=== PATIENT | male | born 1975 | race Caucasian/White ===

== ENCOUNTER → 2020-11-24 | Emergency (ER) | payer OTHER ==
[~2020-11-24] VITALS: Ht 175.3 cm; Wt 90.0 kg
[~2020-11-24] MED LIST: CYCL-331 PO; CYCLOBENZAPRINE 10 MG TABLET. ONE; HYDR-2759 PO; HYDROcodone/APAP 7.5/325MG 1 TAB TABLET ONE
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
[2020-11-24] MEDS: CYCLOBENZAPRINE 10 MG TABLET. PO ONE (09:28)
[2020-11-24] MEDS: HYDROcodone/APAP 7.5/325MG 1 TAB TABLET PO ONE (09:29)
[2020-11-24 09:37] VITALS: BP 129/83
[2020-11-24 10:12] LABS: BACTERIA,URINE 0 /HPF (0-FEW); BILIRUBIN,URINE NEG (NEG); CLARITY,URINE CLEAR; COLOR,URINE YELLOW; GLUCOSE,URINE NEG (NEG); NITRITE,URINE NEG (NEG); RBC,URINE 0 /HPF (0-2); SQUAMOUS EPITHELIAL CELL,UR FEW /LPF; UROBILINOGEN,URINE 0.2 mg/dL (0.2 mg/dL); WBC,URINE OCC /HPF (0-4)
== END | disposition home or self-care (01) ==
LOC: ER 08:45
DX: S80.812A Abrasion, left lower leg, initial encounter (principal); S80.811A Abrasion, right lower leg, initial encounter; M54.2 Cervicalgia; V43.62XA Car passenger injured in collision with other type car in traffic accident, initial encounter; Y93.89 Activity, other specified; Y92.89 Other specified places as the place of occurrence of the external cause; Y99.8 Other external cause status
CPT/HCPCS: 70450; 72125; 81001; 99285-25